=== PATIENT | female | born 1970 ===

== ENCOUNTER 2017-06-11 07:02 | Day surgery (SDC) | payer MEDICAID ==
[2017-06-11 07:36] VITALS: BMI 27.8
[2017-06-11] MEDS ORDERED: Midazolam 2 MG/2 ML VIAL ONE (09:38)
[2017-06-11] MEDS ORDERED: Propofol 10 mg/ml Inj (20 ML) ONE ×2 (09:38→10:27)
--- NOTE | 2017-06-11 09:38 | CP.SDSHP ---
Same Day Surgery H & P - History Proposed Procedure: colonoscopy Pre-Op Diagnosis: history of colon polyps - Allergies Allergies: Allergies No Known Allergies Allergy (Verified 06/11/17 07:22) - Physical Exam General Appearance: NAD Vital Signs: Vital Signs 06/11/17 06/11/17 07:20 07:49 Temperature 97.5 F L 97.5 F L Pulse Rate 68 68 Respiratory 19 19 Rate Blood Pressure 111/77 111/77 O2 Sat by Pulse 99 99 Oximetry Mental Status: Alert & Oriented x3 Neuro: WNL Heart: WNL Lungs: WNL GI: WNL - {Optional Preform as Required} Abdomen: WNL - Impression Pt. Evaluated Today:Candidate for Anesthesia & Procedure: Yes - Date & Time Date: 06/11/17 Time: 09:38 Short Stay Discharge - Short Stay Discharge Admitting Diagnosis/Reason for Visit: H/O COLON POLYPS Disposition: HOME/ ROUTINE
[2017-06-11] MEDS ORDERED: Lactated Ringer's 500 ML IV SCH (10:00)
[2017-06-11 11:15] VITALS: TEMP 97
[2017-06-11 11:17] VITALS: O2SAT 100
[2017-06-11 11:22] VITALS: RESP 20
[2017-06-11 15:27] VITALS: BP 150/78; PULSE 71
== END 2017-06-11 11:23 | disposition home or self-care (01) ==
LOC: C.ENDO 07:02
PROVIDERS: ATTEND Internal Medicine Gastroenterology
DX: K63.5 Polyp of colon (principal); K64.8 Other hemorrhoids
CPT/HCPCS: 45380; 84703; 88305; J2250; J2704; J7120

== ENCOUNTER 2017-08-28 11:48 | Emergency (ER) | payer MEDICAID ==
[2017-08-28 12:21] VITALS: BMI 27.4
[2017-08-28 12:30] VITALS: TEMP 98.1; O2SAT 98
[2017-08-28] MEDS ORDERED: Belladonna-Phenobarbital PO STA (13:33)
[2017-08-28] MEDS ORDERED: Sodium Chloride 0.9% 1,000 ML IV ONE (13:33)
[2017-08-28] MEDS ORDERED: Aluminum Hydroxide/Magnesium Hydroxide Susp (30 mL) PO STA (13:33)
[2017-08-28] MEDS ORDERED: Aluminum Hydroxide/Magnesium Hydroxide Susp (30 mL) ONE (13:47)
[2017-08-28] MEDS ORDERED: Belladonna-Phenobarbital ONE (13:47)
[2017-08-28 14:23] LABS: BASO % 0.6 % (0.0-2.0); EOS # 0.2 K/uL (0.0-0.7); HEMOGLOBIN 14.8 g/dL (11.0-16.0); LYMPH # 2.4 K/uL (1.0-4.3); LYMPH % 28.1 % (20.0-40.0); MEAN CELL VOLUME 87.6 fL (81.0-99.0); MEAN CORPUSCULAR HEMOGLOBIN 30.7 pg (27.0-31.0); MEAN CORPUSCULAR HGB CONC 35.1 g/dL (33.0-37.0); MEAN PLATELET VOLUME 8.5 fL (7.2-11.7); MONO # 0.4 K/uL (0.0-0.8); MONO % 5.1 % (0.0-10.0); NEUT # 5.4 K/uL (1.8-7.0); NEUT % 64.2 % (50.0-75.0); NRBC % 0.1 % (0.0-2.0); RBC 4.82 Mil/uL (3.80-5.20); RED CELL DISTRIBUTION WIDTH 12.4 % (11.5-14.5); WHITE BLOOD COUNT 8.4 K/uL (4.8-10.8)
[2017-08-28 14:25] LABS: URINE BILIRUBIN NEGATIVE (NEGATIVE); URINE BLOOD 1+ (NEGATIVE); URINE CLARITY Clear (Clear); URINE COLOR Colorless (YELLOW); URINE GLUCOSE (UA) NORMAL (Normal); URINE LEUKOCYTE ESTERASE NEG Leu/uL (Negative); URINE NITRATE NEGATIVE (NEGATIVE); URINE PROTEIN NEGATIVE (NEGATIVE); URINE UROBILINOGEN NORMAL mg/dL (0.2-1.0)
[2017-08-28 14:28] LABS: ALB/GLOB RATIO 1.2 (1.0-2.1); ALBUMIN 4.1 g/dL (3.5-5.0); ALT/SGPT 19 U/L (9-52); AST/SGOT 20 U/L (14-36); BLOOD UREA NITROGEN 9 mg/dL (7-17); CALCIUM 9.3 mg/dl (8.6-10.4); GFR AFRICAN-AMERICAN > 60; GFR NON-AFRICAN AMERICAN > 60; LIPASE 49 U/L (23-300)
--- NOTE | 2017-08-28 14:29 | C.PDOC ---
History Of Present Illness 47 year old female presents to ED c/o upper abdominal pain associated with nausea for the last 4 hours. Notes being evaluated in the past for similar symptoms, and was told she had a bacterial infection. Pt states she takes Aspirin for her TMJ. Notes having normal colonoscopy and endoscopy within the past 10 years. Pt reports last BM was yesterday. Pt states she feels stressed out because of her living conditions. Otherwise, denies blood in stool/urine, vomiting, or fever. Chief Complaint (Nursing): Abdominal Pain History Per: Patient History/Exam Limitations: no limitations Onset/Duration Of Symptoms: Hrs Current Symptoms Are (Timing): Still Present Radiation Of Pain To:: None Quality Of Discomfort: "Pain" Associated Symptoms: Nausea. denies: Vomiting, Diarrhea, Loss Of Appetite, Back Pain, Chest Pain, Constipation, Urinary Symptoms Exacerbating Factors: None Alleviating Factors: None Last Bowel Movement: Yesterday Recent travel outside of the [place]: No Additional History Per: Patient Abnormal Vaginal Bleeding: No Past Medical History Reviewed: Historical Data, Nursing Documentation, Vital Signs Vital Signs: Last Vital Signs Temp 98.1 F 08/28/17 12:22 Pulse 80 08/28/17 17:58 Resp 16 08/28/17 17:58 BP 142/90 08/28/17 17:58 Pulse Ox 98 08/28/17 17:58 - Medical History PMH: Anxiety, Colonic Polyps, HTN, Migraine Denies: Chronic Kidney Disease Surgical History: Endoscopy, Tonsillectomy - [facility] Procedures ENDO RECTUM POLYPECTOMY (07/04/14) ENDOSC POLYPECTOMY OF LG INTEST (07/04/14) ESOPHAGOGASTRODUODENOSCOPY [EGD] W/CLOSED BIOPSY (07/04/14) Family History: States: Unknown Family Hx - Social History Hx Alcohol Use: Yes Hx Substance Use: No - Immunization History Hx Tetanus Toxoid Vaccination: No Hx Influenza Vaccination: Yes (2017) Hx Pneumococcal Vaccination: No Review Of Systems Except As Marked, All Systems Reviewed And Found Negative. Constitutional: Negative for: Fever, Chills Cardiovascular: Negative for: Chest Pain, Palpitations Respiratory: Negative for: Cough, Shortness of Breath Gastrointestinal: Positive for: Nausea, Abdominal Pain. Negative for: Vomiting , Diarrhea, Constipation Genitourinary: Negative for: Dysuria, Frequency, Hematuria, Vaginal Discharge Musculoskeletal: Negative for: Back Pain Physical Exam - Physical Exam Appears: Non-toxic, No Acute Distress Skin: Normal Color, Warm, Dry Head: Atraumatic, Normacephalic Eye(s): bilateral: Normal Inspection Oral Mucosa: Moist Cardiovascular: Rhythm Regular Respiratory: Normal Breath Sounds, No Rales, No Rhonchi, No Wheezing Gastrointestinal/Abdominal: Soft, Tenderness (mild LUQ), No Distention, No Guarding, No Rebound Back: No CVA Tenderness Extremity: Normal ROM Neurological/Psych: Oriented x3, Normal Speech ED Course And Treatment - Laboratory Results Result Diagrams: 08/28/17 14:13 08/28/17 14:13 O2 Sat by Pulse Oximetry: 98 (RA) Pulse Ox Interpretation: Normal Medical Decision Making Medical Decision Making: Blood work, UA, Abd & Pelvis CT ordered and reviewed. Pt was given Pepcid, Maalox, , and IV fluids. Disposition - Disposition Referrals: [facility], [Non-Staff] - Disposition: HOME/ ROUTINE Disposition Time: 16:40 Condition: GOOD Additional Instructions: Thank you for letting us take care of you today. The emergency medical care you received today was directed at your acute symptoms. If you were prescribed any medication, please fill it and take as directed. It may take several days for your symptoms to resolve. Return to the Emergency Department if your symptoms worsen, do not improve, or if you have any other problems. Please contact your doctor or call one of the physicians/clinics you have been referred to that are listed on the Patient Visit Information form that is included in your discharge packet. Bring any paperwork you were given at discharge with you along with any medications you are taking to your follow up visit. Our treatment cannot replace ongoing medical care by a primary care provider (PCP) outside of the emergency department. Thank you for allowing the [facility] team to be part of your care today. Follow up with your doctor in 3-4 days for re-evaluation and further management. Instructions: Gastritis Forms: [employer] (Citizen Of [place]) - Clinical Impression Clinical Impression: Gastroesophageal reflux disease - Scribe Statement The provider has reviewed the documentation as recorded by the Scribe Jalen Almonte All medical record entries made by the Scribe were at my direction and personally dictated by me. I have reviewed the chart and agree that the record accurately reflects my personal performance of the history, physical exam, medical decision making, and the department course for this patient. I have also personally directed, reviewed, and agree with the discharge instructions and disposition.
[2017-08-28] MEDS ORDERED: Iodixanol 320 MG/ML 100 ML BOTTLE IV ONE (15:24)
--- NOTE | 2017-08-28 16:22 | CT ---
PROCEDURE: CT Abdomen and Pelvis with contrast HISTORY: upper abdominal pain COMPARISON: 07/24/2016 abdominal ultrasound TECHNIQUE: Contrast dose: 100 cc Visipaque 320 Radiation dose: Total exam DLP = 617.59 mGy-cm. This CT exam was performed using one or more of the following dose reduction techniques: Automated exposure control, adjustment of the mA and/or kV according to patient size, and/or use of iterative reconstruction technique. FINDINGS: LOWER THORAX: Unremarkable. LIVER: Unremarkable. No gross lesion or ductal dilatation. GALLBLADDER AND BILE DUCTS: Unremarkable. PANCREAS: Unremarkable. No gross lesion or ductal dilatation. SPLEEN: Unremarkable. ADRENALS: Unremarkable. No mass. KIDNEYS AND URETERS: Unremarkable. No hydronephrosis. No solid mass. VASCULATURE: Unremarkable. No aortic aneurysm. BOWEL: Unremarkable. No obstruction. No gross mural thickening. APPENDIX: Normal appendix. PERITONEUM: Unremarkable. No free fluid. No free air. LYMPH NODES: Unremarkable. No enlarged lymph nodes. BLADDER: Unremarkable. REPRODUCTIVE: Enlarged heterogeneous and fibroid uterus BONES: No acute fracture. Partial lumbarization 1st sacral element. Grade 1 anterolisthesis S1-S2. Associated spondylolysis. OTHER FINDINGS: None. IMPRESSION: No significant or acute findings to account for/ related to the clinical presentation. Additional benign and/or incidental findings described above.
[2017-08-28 17:59] VITALS: BP 142/90; PULSE 80; RESP 16
== END 2017-08-28 17:59 | disposition home or self-care (01) ==
LOC: C.ER 11:48
DX: K21.9 Gastro-esophageal reflux disease without esophagitis (principal); I10 Essential (primary) hypertension; F17.210 Nicotine dependence, cigarettes, uncomplicated
CPT/HCPCS: 74177; 80053; 81001; 83690; 84703; 85025; 87086; 96361; 96374; 99284; J7040; Q9967

== ENCOUNTER 2017-09-03 11:24 | Emergency (ER) | payer MEDICAID ==
[2017-09-03 11:24] VITALS: BMI 27.4
[2017-09-03 11:34] VITALS: RESP 18; TEMP 98.1
[2017-09-03] MEDS ORDERED: Sodium Chloride 0.9% 500 ML IV ONE (12:17)
[2017-09-03] MEDS ORDERED: DiphenhydrAMINE 50 mg/ml Inj IVP STA (12:19)
[2017-09-03] MEDS ORDERED: Sodium Chloride 0.9% 1,000 ML ONE (12:26)
[2017-09-03] MEDS ORDERED: DiphenhydrAMINE 50 mg/ml Inj ONE (12:33)
--- NOTE | 2017-09-03 12:35 | C.PDOC ---
History Of Present Illness 47 y/o female presents to the ER complaining of an itchy diffuse rash which has gradually developed over the past 5 days. Patient states that she was seen in [facility] 5 days ago due to epigastric pain when was medication with Mylanta, Donatal and had imaging CT-Abdomen/Pelvis with IV contrast. Pt reports, next day after ED visit developed an itchy rash that gradually spread over the body. Pt admits, was taking Benadryl over the past 5 days with out improvement in rash. Otherwise, pt denies hx of previous allergy to medication or food, denies fever, chills, drooling, dysphagia, dyspnea, throat pain/ tightness, or swelling , cough, wheezing, chest pain, SOB, palpitation, abd. pain, V/D, back pain. Ambulate to ED for evaluation, not in any apparent distress. Time Seen by Provider: 09/03/17 11:53 Chief Complaint (Nursing): Allergic Reaction History Per: Patient History/Exam Limitations: no limitations Onset/Duration Of Symptoms: Days Current Symptoms Are (Timing): Still Present Home/EMS Treatment: Benadryl Severity: Moderate Past Medical History Reviewed: Historical Data, Nursing Documentation, Vital Signs Vital Signs: Last Vital Signs Temp 98.1 F 09/03/17 11:32 Pulse 82 09/03/17 11:32 Resp 18 09/03/17 11:32 BP 138/91 H 09/03/17 11:32 Pulse Ox 99 09/03/17 12:45 - Medical History PMH: Anxiety, Colonic Polyps, HTN, Migraine Denies: Chronic Kidney Disease Surgical History: Endoscopy, Tonsillectomy - [facility] Procedures ENDO RECTUM POLYPECTOMY (07/04/14) ENDOSC POLYPECTOMY OF LG INTEST (07/04/14) ESOPHAGOGASTRODUODENOSCOPY [EGD] W/CLOSED BIOPSY (07/04/14) Family History: States: No Known Family Hx - Social History Hx Alcohol Use: Yes Hx Substance Use: No - Immunization History Hx Tetanus Toxoid Vaccination: No Hx Influenza Vaccination: Yes (2016) Hx Pneumococcal Vaccination: No Review Of Systems Except As Marked, All Systems Reviewed And Found Negative. Constitutional: Negative for: Fever, Chills ENT: Negative for: Mouth Swelling, Throat Pain, Throat Swelling Cardiovascular: Negative for: Chest Pain, Palpitations, Edema, Light Headedness Respiratory: Negative for: Cough, Shortness of Breath, Wheezing Gastrointestinal: Negative for: Nausea, Vomiting, Abdominal Pain, Diarrhea Skin: Positive for: Rash (itchy rash) Neurological: Negative for: Weakness, Numbness, Headache, Dizziness Physical Exam - Physical Exam Appears: Well, Non-toxic, No Acute Distress Skin: Normal Color, Warm, Rash (diffuse urticaria to body) Head: Normacephalic Eye(s): bilateral: PERRL Nose: No Flaring, No Discharge Oral Mucosa: Moist, No Drooling Tongue: No Swelling Lips: No Swelling Throat: No Erythema, No Drooling, Other (uvul amidline, no edema.) Neck: Trachea Midline, Supple Chest: Symmetrical Cardiovascular: Rhythm Regular, No JVD Respiratory: No Decreased Breath Sounds, No Accessory Muscle Use, No Rales, No Rhonchi, No Stridor, No Wheezing Gastrointestinal/Abdominal: Soft, No Tenderness, No Distention, No Guarding Extremity: Normal ROM, No Pedal Edema, No Deformity, No Swelling Neurological/Psych: Oriented x3, Normal Speech ED Course And Treatment O2 Sat by Pulse Oximetry: 99 (RA) Pulse Ox Interpretation: Normal Progress Note: Patient given Benadryl, Pepcid, Solu-Medrol, and IV fluids. Pt was OBS in ED for 2 hours. On re-evaluation, pt is afebrile, hemodynamicaly stable. non-toxic. Tolerate Po well in ED. Not in resp. distress. PUlseOx 99 % RA. ENT: no acute findings. uvula midline, no edema. neck: Supple, (-) JVD. Lungs: CTA B/L, BS equal B/L. Abd: soft, (-) guarding, (-) rebound. No peripheral edema. Pt has clinical findings c/w allergic urticaria likely sec to medication ( IV contrast, donatal). Pt advised. ref. to f/u with PMD, [employer] in 2-3 days for re-eval. return to ED if anyw orsening or new changes. Disposition Counseled Patient/Family Regarding: Diagnosis, Need For Followup, Rx Given - Disposition Referrals: [facility] [Outside] Disposition: HOME/ ROUTINE Disposition Time: 13:20 Condition: STABLE Additional Instructions: AVOID IV CONTRAST, DONATAL(BELLADONNA) IN FUTURE DUE TO POSSIBLE ALLERGIC REACTION ENCOURAGE FLUIDS TAKE MEDICATION PRESCRIBED FOLLOW UP WITH PMD, LAB COORDINATOR IN2 -3 DAYS FOR RE-EVALUATION. RETURN TO ED IF ANY WORSENING OR NEW CHANGES. Prescriptions: DiphenhydrAMINE [Benadryl] 25 mg PO BID #10 cap Famotidine [Pepcid] 20 mg PO BID #10 tab Prednisone [Deltasone] 60 mg PO DAILY #9 tablet Instructions: Adverse Drug Reactions, Adult, Hives (DC) Forms: [employer] ([place]) - Clinical Impression Clinical Impression: Allergic urticaria - PA / MANAGER [employer] / Resident Statement MD/DO has reviewed & agrees with the documentation as recorded. - Scribe Statement The provider has reviewed the documentation as recorded by the Vero Medina Provider Attestation All medical record entries made by the Lamiblisa were at my direction and personally dictated by me. I have reviewed the chart and agree that the record accurately reflects my personal performance of the history, physical exam, medical decision making, and the department course for this patient. I have also personally directed, reviewed, and agree with the discharge instructions and disposition.
[2017-09-03 13:42] VITALS: BP 128/91; PULSE 76; O2SAT 100
== END 2017-09-03 13:42 | disposition home or self-care (01) ==
LOC: C.ER 11:24
DX: L50.0 Allergic urticaria (principal); I10 Essential (primary) hypertension
CPT/HCPCS: 96374; 96375; 99283; J1200; J2930; J7040